=== PATIENT | female | born 1975 | race Caucasian/White ===

== ENCOUNTER → 2017-12-23 | Outpatient (CLI) | payer OTHER ==
--- NOTE | 2017-12-23 11:04 | CARD ---
MR#: [id number] Date of Study: 12/23/2017 Ordering Physician: KAYLYN HAWK, Referring Physician: KAYLYN HAWK, Tech: JULIO Lazar APPROVED REPORT EXAM: Two-dimensional and M-mode echocardiogram with Doppler and color Doppler. Other Information Quality : Average INDICATION Chest pressure Edema 2D DIMENSIONS Left Atrium(2D)3.6 (1.6-4.0cm)IVSd1.3 (0.7-1.1cm) Aortic Root(2D)3.2 (2.0-3.7cm)LVDd3.6 (3.9-5.9cm) LVOT Diameter2.1 (1.8-2.4cm)PWd1.2 (0.7-1.1cm) LVDs2.3 (2.5-4.0cm)FS (%) 35.1 % SV36.0 mlLVEF(%)65.3 (>50%) Aortic Valve AoV Peak Tai.119.1cm/Silverio Peak GR.5.7mmHg LVOT Peak Tai.91.3cm/sAVA (VMAX)2.77cm2 Mitral Valve MV E Kprahsoj84.4cm/sMV DECEL DUHJ421wo MV A Meicrkpy21.0cm/sE/A Ratio1.0 Tricuspid Valve TR P. Qopejpyk608wx/sRAP [id number] TR Peak Gr.12akXdIPEV17srXj LEFT VENTRICLE The left ventricle is normal size. There is mild concentric left ventricular hypertrophy. The left ve ntricular systolic function is normal and the ejection fraction is within normal range. The Ejection Fraction is 60-65%. There is normal LV segmental wall motion. The left ventricular diastolic function and filling is normal for age. RIGHT VENTRICLE The right ventricle is normal size. There is normal right ventricular wall thickness. The right ventr icular systolic function is normal. ATRIA The left atrium size is normal. The right atrium size is normal. The interatrial septum is intact wit h no evidence for an atrial septal defect or patent foramen ovale as noted on 2-D or Doppler imaging. AORTIC VALVE Not well visualized. Doppler and Color Flow revealed no significant aortic regurgitation. There is no significant aortic valvular stenosis. MITRAL VALVE The mitral valve is normal in structure and function. There is no mitral valve stenosis. Doppler and Color Flow revealed no mitral valve regurgitation noted. TRICUSPID VALVE The tricuspid valve is normal in structure and function. Doppler and Color Flow revealed trace tricus pid regurgitation. There is no tricuspid valve stenosis. PULMONIC VALVE The pulmonic valve is not well visualized. Doppler and Color Flow revealed trace pulmonic valvular re gurgitation. There is no pulmonic valvular stenosis. GREAT VESSELS The aortic root is normal in size. The IVC is normal in size and collapses >50% with inspiration. PERICARDIAL EFFUSION There is no pleural effusion. There is no evidence of significant pericardial effusion. Critical Notification Critical Value: No <Conclusion> The left ventricular systolic function is normal and the ejection fraction is within normal range. Th e Ejection Fraction is 60-65%. There is normal LV segmental wall motion. Signed by : Bao Fofana, Electronically Approved : 12/23/2017 11:03:42
== END | disposition home or self-care (01) ==
LOC: ECHO 09:46
PROVIDERS: ATTEND Family Medicine
DX: I51.7 Cardiomegaly (principal)
CPT/HCPCS: 93306

== ENCOUNTER → 2018-05-04 | Outpatient (CLI) | payer OTHER ==
--- NOTE | 2018-05-04 17:14 | RAD ---
History: Fluid drained from knee 2 weeks ago. Continued tenderness and pain ambulating. Comparison: None. Findings: AP, lateral, and oblique views of the left knee. No acute fracture or dislocation is identified. No joint effusion is identified. Mild medial and patellofemoral compartment degeneration is seen with small marginal osteophyte formation. Lateral compartment is without significant degeneration. There is soft tissue swelling anterior to the patella, and would be compatible with bursitis. Impression: 1. Prepatellar bursitis. 2. Mild medial and patellofemoral compartment degeneration. Electronically signed by: Yonny Maxwell MD (05/04/2018 5:11 PM) [place] [id number]
== END | disposition home or self-care (01) ==
LOC: RAD 16:17
PROVIDERS: ATTEND Family Medicine
DX: S89.92XA Unspecified injury of left lower leg, initial encounter (principal); M70.42 Prepatellar bursitis, left knee; M17.12 Unilateral primary osteoarthritis, left knee; M85.88 Other specified disorders of bone density and structure, other site; X58.XXXA Exposure to other specified factors, initial encounter; Y92.89 Other specified places as the place of occurrence of the external cause; Y99.8 Other external cause status; Y93.89 Activity, other specified
CPT/HCPCS: 73562

== ENCOUNTER → 2018-08-14 | Outpatient (CLI) | payer OTHER ==
--- NOTE | 2018-08-14 10:31 | RAD ---
Ultrasound venous Doppler INDICATION:Left lower extremity pain. TECHNIQUE: Grayscale, color Doppler and spectral waveform ultrasound images of the left lower extremity deep veins obtained. COMPARISON: None FINDINGS: The interrogated deep veins are compressible and demonstrate evidence of blood flow with normal respiratory variation and response to augmentation. Enlarged lymph nodes in the inguinal region, the largest measuring 3.9 x 2.1 x 1.5 cm. IMPRESSION: 1. No sonographic evidence of acute DVT of the left lower extremity deep veins. 2. Enlarged left inguinal lymph nodes. Electronically signed by: Sohan Multani DO (08/14/2018 10:28 AM) [id number]
--- NOTE | 2018-08-14 16:58 | RAD ---
Left lower extremity arterial Doppler ultrasound History: Left leg pain. FINDINGS: Triphasic waveforms are identified throughout. No evidence of occlusion or high-grade narrowing. Velocities range from 56 through 115 cm/s. No evidence of calcified plaque. IMPRESSION: No evidence of left lower extremity arterial occlusion or high-grade stenosis. Electronically signed by: Yonny Pedroza MD (08/14/2018 4:55 PM) [facility]
== END | disposition home or self-care (01) ==
LOC: US 09:28
PROVIDERS: ATTEND Registered Nurse
DX: M79.605 Pain in left leg (principal); R59.0 Localized enlarged lymph nodes
CPT/HCPCS: 93926; 93971

== ENCOUNTER → 2018-08-26 | Outpatient (CLI) | payer OTHER ==
[2018-08-26] MEDS: IOHEXOL 350 MG/ML 100 ML VIAL. IV ONE (09:32)
--- NOTE | 2018-08-26 10:41 | RAD ---
PQRS Compliance statement: One or more of the following individualized dose reduction techniques were utilized for this examination: 1. Automated exposure control. 2. Adjustment of the mA and/or kV according to patient size. 3. Use of iterative reconstruction technique. Indication:Omni 360 100c: PE protocol: Chest pain, short of air, cough, elevated d-dimer TECHNIQUE: CT angiogram of the chest with IV contrast with multiplanar MIP reformats. COMPARISON:None FINDINGS: Diagnostic quality PE study. There are no central, segmental or subsegmental filling defects in the pulmonary arteries. Heart is normal in size. No pericardial or pleural effusion. No enlarged axillary, mediastinal or hilar adenopathy. Central airways are patent. Lungs are clear. Visualized sections through the liver, spleen, pancreas, adrenals and kidneys within normal limits. Subcapsular fat is seen in the segment 8 of the liver, nonspecific. No suspicious bony lesion. IMPRESSION: 1. No PE. 2. No pneumonia or imaging evidence of acute pulmonary infarct. Electronically signed by: Sohan Multani DO (08/26/2018 10:38 AM) [id number]
== END | disposition home or self-care (01) ==
LOC: CT 08:57
PROVIDERS: ATTEND Family Medicine
DX: R79.1 Abnormal coagulation profile (principal); R07.9 Chest pain, unspecified; R05 Cough; R09.89 Other specified symptoms and signs involving the circulatory and respiratory systems; I10 Essential (primary) hypertension; J45.909 Unspecified asthma, uncomplicated
CPT/HCPCS: 71275; Q9967

== ENCOUNTER 2020-07-14 21:16 | Emergency (ER) | payer OTHER ==
[~2020-07-14] VITALS: Ht 162.6 cm; Wt 104.5 kg
[2020-07-14 22:28] VITALS: BP 158/72
--- NOTE | 2020-07-14 22:34 | PHYS DOC ---
Past History Past Medical History Severe psoriasis both skin and arthritis Past Surgical History: Appendectomy, Cholecystectomy Past Surgical History bowel resection General Adult EDM: Chief Complaint: ABDOMINAL PAIN HPI: HPI: ".. I ve had really bad pain.. all day.. some vaginal bleeding.. I thought it was cramps... .." Patient is a 45 year old female who presents with reported vaginal bleeding and cramping. Patient complaining of dysfunctional uterine bleeding like cramps, bu t also severe epigastric symptoms. Patient has had numerous abdomen surgeries gallstones in 2016 appendectomy and 72, partial removal of intestine due to localized injury. Patient symptoms seem to present in the last 24 hours. Last ate approximately 1:30 PM today. No recent travel. No specific ill contacts. No history immunosuppression. No history of trauma. Not passed any gas in the last 6 hours. Review of Systems: Review of Systems: Constitutional: Denies fever or chills Eyes: Denies change in visual acuity HENT: Denies nasal congestion or sore throat Respiratory: Denies cough or shortness of breath Cardiovascular: Denies chest pain or edema GI: Complains of severe generalized abdominal pain, nausea, patient denies vomiting, bloody stools or diarrhea : Denies dysuria Musculoskeletal: Denies back pain or joint pain Integument: Denies rash Neurologic: Denies headache, focal weakness or sensory changes Endocrine: Denies polyuria or polydipsia Lymphatic: Denies swollen glands Psychiatric: Denies depression or anxiety Family History: Family History: Noncontributory to presentation Current Medications: Current Meds: See nursing for home meds Allergies: Allergies: Allergies Coded Allergies Type Severity Reaction Last Updated Verified codeine Allergy Unknown 08/26/18 Yes hydrocodone Allergy Unknown 07/14/20 Yes Physical Exam: PE: Constitutional: in acute distress, non-toxic appearance. [] HENT: Normocephalic, atraumatic, bilateral external ears normal, oropharynx sean st, no oral exudates, nose normal. [] Eyes: PERRLA, EOMI, conjunctiva normal, no discharge. [] Neck: Normal range of motion, no tenderness, supple, no stridor. [] Cardiovascular:Heart rate regular rhythm, no murmur [] Lungs & Thorax: Bilateral breath sounds equal apex with few scattered wheezes a uscultation [] Abdomen: Bowel sounds decreased soft, generalized tenderness, some focal localization to the left upper and left lower on rebound, no masses, no pulsatile masses. Distended .[] Multiple surgery scars. Skin: Warm, dry, no erythema, no rash. [] Back: No tenderness, no CVA tenderness. [] Extremities: No tenderness, no cyanosis, no clubbing, ROM intact, no edema. No psoas sign Neurologic: Alert and oriented X 3, normal motor function, normal sensory function, no focal deficits noted. [] Psychologic: Affect anxious, judgement normal, mood normal. [] EKG: EKG: [] Radiology/Procedures: Radiology/Procedures: [address] [address] IMAGING REPORT Signed PATIENT: VIRGINIA FISHERUNT: [id number] : 1975 LOCATION: ER AGE: 45 SEX: F EXAM STATUS: REG ER ORD. PHYSICIAN: JEFFRY CARLISLE MD REASON: eval placement of ng PROCEDURE: CHEST AP ONLY EXAM: XR CHEST 1V 07/15/2020 2:46 AM CLINICAL INDICATION: NG tube placement COMPARISON: CT abdomen and pelvis 07/14/2020 TECHNIQUE: AP view of the chest and upper abdomen. FINDINGS: There is a new nasogastric tube terminating in the gastric fundus. There is gaseous distention of the stomach and some dilated loops of small noa wel. IMPRESSION: New nasogastric tube in the gastric fundus. Electronically signed by: Antonette Bustamante MD (07/15/2020 4:36 AM) [id number] DICTATED AND SIGNED BY: ANTONETTE BUSTAMANTE MD DATE: 07/15/20 0434 CC: JEFFRY CARLISLE MD; JENNIFER YOUNG MD ~MTH0 0 [] [] IMAGING REPORT Signed PATIENT: VIRGINIA FISHER MACCOUNT: [id number] : 1975 LOCATION: ER AGE: 45 SEX: F EXAM STATUS: REG ER ORD. PHYSICIAN: JEFFRY CARLISLE MD REASON: Abd pain, hx. cholectomy, appendix, bowel resection Omni 300 75c PROCEDURE: CT ABD PELV W/ORAL&IV CONTRAST Exam: CT abdomen/pelvis without intravenous contrast Indication: Abdominal pain, history of cholecystectomy, appendectomy, and bowel resection. Comparison: None Technique: Helical CT imaging performed of the abdomen and pelvis without the use of intravenous contrast. Sagittal and coronal reformats were obtained. One or more of the following individualized dose reduction techniques were utilized for this examination: 1. Automated exposure control 2. Adjustment of the mA and/or kV according to patient size 3. Use of iterative reconstruction technique. Findings: Inherently limited evaluation without intravenous contrast. Lower chest: Normal. Liver: There is a 2.4 x 1.0 cm subcapsular lesion in the right hepatic lobe with fat density. Gallbladder/Biliary Tree: Gallbladder surgically absent. Bile ducts are normal. Pancreas: Normal. Spleen: Normal. Adrenal Glands: Normal. Kidneys/Ureters/Bladder: Kidneys, ureters, and bladder are normal. Reproductive Organs: Uterus is enlarged. The ovaries are prominent. Stomach, small bowel, and colon: Stomach is mildly distended. There are surgical clips in the left midabdomen adjacent to the small bowel. The mid to distal small bowel is dilated up to 4.4 cm in diameter. There is a transition point in the right upper quadrant were there is a segment of abnormal small bowel with wall thickening and narrowing, suspicious for stricture, acute inflammatory bowel disease, or mass. Small bowel proximal to this demonstrates fecalization. Small bowel distal to this is normal to decompressed. There is fat stranding and small amount of free fluid surrounding loops of abnormal bowel in the right upper quadrant. No pneumatosis or pneumoperitoneum. The colon is normal aside from mild sigmoid diverticulosis. Vasculature: Abdominal aorta is normal. Lymph Nodes: There are bilateral external iliac chain lymph nodes, including a 1.3 cm short axis left external iliac chain node (image 77, series 2). Peritoneum and retroperitoneum: No free fluid or free air. Bones: No acute osseous abnormality. There is lower lumbar facet arthrosis. Impression: 1. Mechanical small bowel obstruction with transition point in the right upper quadrant were there is a segment of abnormal small bowel with relative narrowing and wall thickening. This could be due to stricture, acute inflammatory bowel disease, or mass. Small amount of fat surrounding free fluid around the small bowel. No pneumatosis or pneumoperitoneum. 2. Enlarged uterus and prominent ovaries. Correlate with clinical history and pelvic ultrasound as indicated. 3. 2.4 cm fat-containing subcapsular lesion in the right hepatic lobe. This is indeterminate. Nonemergent CT or MRI with renal mass protocol could be obtained. 4. Mildly enlarged left external iliac chain lymph node measuring 1.3 cm short axis. Other small bilateral external iliac chain lymph nodes, nonspecific. Electronically signed by: Antonette Bustamante MD (07/15/2020 2:18 AM) [id number] DICTATED AND SIGNED BY: ANTONETTE BUSTAMANTE MD DATE: 07/15/20 0203 CC: JEFFRY CARLISLE MD; JENNIFER YOUNG MD ~MTH0 0 Heart Score: HEART Score for Chest Pain: HEART Score for Chest Pain Response (Comments) Value History Slighlty/Non-Suspicious 0 ECG Normal 0 Age >45 - < 65 1 Risk Factors 1 or 2 Risk Factors 1 Troponin < Normal Limit 0 Total 2 Risk Factors: Risk Factors: DM, Current or recent (<one month) smoker, HTN, HLP, family history of CAD, obesity. Risk Scores: Score 0 - 3: 2.5% MACE over next 6 weeks - Discharge Home Score 4 - 6: 20.3% MACE over next 6 weeks - Admit for Clinical Observation Score 7 - 10: 72.7% MACE over next 6 weeks - Early Invasive Strategies Course & Med Decision Making: Course & Med Decision Making Pertinent Labs and Imaging studies reviewed. (See chart for details) Discussed presentation, testing and tx. plan with Dr. Elena. Plan transfer to [facility]. Dr. Will consulted. Plan possible MRI eot evaluate the 2.4 cm lesion of Rt. hepatic lobe. Impression: 1. Abdomen Pain 2. Small bowel obstruction 3. Hematuria? vs c-menstrual contamination 4. 2.4 cm subcapsular lesion right hepatic lobe [] Dragon Disclaimer: Dragon Disclaimer: This electronic medical record was generated, in whole or in part, using a voice recognition dictation system. Departure Departure: Referrals: JENNIFER YOUNG MD (PCP) Dragon Disclaimer This chart was dictated in whole or in part using Voice Recognition software in a busy, high-work load, and often noisy Emergency Department environment. It may contain unintended and wholly unrecognized errors or omissions. Dragon Disclaimer This chart was dictated in whole or in part using Voice Recognition software in a busy, high-work load, and often noisy Emergency Department environment. It may contain unintended and wholly unrecognized errors or omissions. Dragon Disclaimer This chart was dictated in whole or in part using Voice Recognition software in a busy, high-work load, and often noisy Emergency Department environment. It may contain unintended and wholly unrecognized errors or omissions. JEFFRY CARLISLE MD Jul 14, 2020 22:34
[2020-07-14] MEDS ORDERED: FAMOTIDINE 20 MG/2 ML VIAL IVP ONE (22:45)
[2020-07-14] MEDS ORDERED: ONDANSETRON PF 4 MG/2 ML VIAL. IVP ONE (22:45)
[2020-07-14] MEDS ORDERED: IV RINGERS SOLUTION,LACTATED 1,000 ML IV SCH (22:45)
[2020-07-14] MEDS ORDERED: KETOROLAC 30 MG/ML VIAL. IVP ONE (23:15)
[2020-07-14 23:34] LABS: BASO % 0 % (0-3); EOS % 0 % (0-3); HEMATOCRIT 41.2 % (36.0-47.0); HEMOGLOBIN 13.8 g/dL (12.0-15.5); LYMPH # 0.6 x10^3/uL (1.0-4.8); LYMPH % 7 % (24-48); MEAN CORPUSCULAR HEMOGLOBIN 28 pg (25-35); MEAN CORPUSCULAR HGB CONC 33 g/dL (31-37); MEAN CORPUSCULAR VOLUME 84 fL (79-100); MONO # 0.3 x10^3/uL (0.0-1.1); MONO % 3 % (0-9); NEUT # 6.9 x10^3uL (1.8-7.7); NEUT % 89 % (31-73); PLATELET COUNT 259 x10^3/uL (140-400); RED BLOOD COUNT 4.89 x10^6/uL (3.50-5.40); RED CELL DISTRIBUTION WIDTH 15.4 % (11.5-14.5); WHITE BLOOD COUNT 7.8 x10^3/uL (4.0-11.0)
[2020-07-14 23:36] LABS: BARBITURATES NEG (NEG); BENZODIAZEPINES NEG (NEG); CANNABINOIDS NEG (NEG); COCAINE NEG (NEG); METHADONE NEG (NEG); OPIATES NEG (NEG); PHENCYCLIDINE NEG (NEG)
[2020-07-14 23:42] LABS: CALCIUM 8.6 mg/dL (8.5-10.1); CREATININE 0.9 mg/dL (0.6-1.0); GFR 67.1; POTASSIUM 4.7 mmol/L (3.5-5.1)
[2020-07-14 23:42] LABS: AMPHETAMINE/METHAMPHETAMINE NEG (NEG)
[2020-07-14 23:45] LABS: ALBUMIN 3.7 g/dL (3.4-5.0); DIRECT BILIRUBIN 0.1 mg/dL (0.0-0.2); TOTAL BILIRUBIN 0.3 mg/dL (0.2-1.0); TOTAL PROTEIN 7.9 g/dL (6.4-8.2)
[2020-07-14 23:55] LABS: CLARITY,URINE CLOUDY; COLOR,URINE RED
[2020-07-14 23:56] LABS: BILIRUBIN,URINE NEG (NEG); GLUCOSE,URINE NEG (NEG); NITRITE,URINE NEG (NEG)
[2020-07-14 23:57] LABS: BACTERIA,URINE FEW /HPF (0-FEW); RBC,URINE >40 /HPF (0-2); SQUAMOUS EPITHELIAL CELL,UR FEW /LPF; WBC,URINE 0 /HPF (0-4)
[2020-07-15] MEDS ORDERED: CONTRAST GIVEN. MC PRN (00:30)
[2020-07-15] MEDS ORDERED: IOHEXOL 240 MG/ML 50ML VIAL. PO ONE (00:30)
[2020-07-15] MEDS ORDERED: IOHEXOL 300 MG/ML 75 ML VIAL. IV ONE (00:30)
--- NOTE | 2020-07-15 02:20 | RAD ---
Exam: CT abdomen/pelvis without intravenous contrast Indication: Abdominal pain, history of cholecystectomy, appendectomy, and bowel resection. Comparison: None Technique: Helical CT imaging performed of the abdomen and pelvis without the use of intravenous cont rast. Sagittal and coronal reformats were obtained. One or more of the following individualized dose reduction techniques were utilized for this examinat ion: 1. Automated exposure control 2. Adjustment of the mA and/or kV according to patient size 3. Use of iterative reconstruction technique. Findings: Inherently limited evaluation without intravenous contrast. Lower chest: Normal. Liver: There is a 2.4 x 1.0 cm subcapsular lesion in the right hepatic lobe with fat density. Gallbladder/Biliary Tree: Gallbladder surgically absent. Bile ducts are normal. Pancreas: Normal. Spleen: Normal. Adrenal Glands: Normal. Kidneys/Ureters/Bladder: Kidneys, ureters, and bladder are normal. Reproductive Organs: Uterus is enlarged. The ovaries are prominent. Stomach, small bowel, and colon: Stomach is mildly distended. There are surgical clips in the left mi dabdomen adjacent to the small bowel. The mid to distal small bowel is dilated up to 4.4 cm in diamet er. There is a transition point in the right upper quadrant were there is a segment of abnormal small bowel with wall thickening and narrowing, suspicious for stricture, acute inflammatory bowel disease , or mass. Small bowel proximal to this demonstrates fecalization. Small bowel distal to this is norm al to decompressed. There is fat stranding and small amount of free fluid surrounding loops of abnorm al bowel in the right upper quadrant. No pneumatosis or pneumoperitoneum. The colon is normal aside f rom mild sigmoid diverticulosis. Vasculature: Abdominal aorta is normal. Lymph Nodes: There are bilateral external iliac chain lymph nodes, including a 1.3 cm short axis left external iliac chain node (image 77, series 2). Peritoneum and retroperitoneum: No free fluid or free air. Bones: No acute osseous abnormality. There is lower lumbar facet arthrosis. Impression: 1. Mechanical small bowel obstruction with transition point in the right upper quadrant were there i s a segment of abnormal small bowel with relative narrowing and wall thickening. This could be due to stricture, acute inflammatory bowel disease, or mass. Small amount of fat surrounding free fluid gabrielle und the small bowel. No pneumatosis or pneumoperitoneum. 2. Enlarged uterus and prominent ovaries. Correlate with clinical history and pelvic ultrasound as i ndicated. 3. 2.4 cm fat-containing subcapsular lesion in the right hepatic lobe. This is indeterminate. Noneme rgent CT or MRI with renal mass protocol could be obtained. 4. Mildly enlarged left external iliac chain lymph node measuring 1.3 cm short axis. Other small mohamud ateral external iliac chain lymph nodes, nonspecific. Electronically signed by: Antonette Bustamante MD (07/15/2020 2:18 AM) [id number]
--- NOTE | 2020-07-15 02:21 | RAD ---
EXAM: XR ABDOMEN COMP ACUTE 07/14/2020 12:22 AM CLINICAL INDICATION: Lower abdominal pain, vaginal bleeding with blood clots COMPARISON: None TECHNIQUE: AP supine and upright views of the abdomen, PA view the chest FINDINGS: Bowel gas pattern is nonspecific and nonobstructive. Normal volume of stool. Cholecystecto my clips are noted. The heart and mediastinum are normal. Lungs are well-expanded and clear. No acute osseous abnormality. IMPRESSION: No acute radiographic abnormality. Electronically signed by: Antonette Bustamante MD (07/15/2020 2:19 AM) [id number]
[2020-07-15] MEDS ORDERED: MORPHINE SULFATE 10 MG/ML SYRINGE. SQ ONE (03:00)
[2020-07-15] MEDS ORDERED: ONDANSETRON PF 4 MG/2 ML VIAL. IVP ONE (04:30)
--- NOTE | 2020-07-15 04:39 | RAD ---
EXAM: XR CHEST 1V 07/15/2020 2:46 AM CLINICAL INDICATION: NG tube placement COMPARISON: CT abdomen and pelvis 07/14/2020 TECHNIQUE: AP view of the chest and upper abdomen. FINDINGS: There is a new nasogastric tube terminating in the gastric fundus. There is gaseous disten tion of the stomach and some dilated loops of small bowel. IMPRESSION: New nasogastric tube in the gastric fundus. Electronically signed by: Antonette Bustamante MD (07/15/2020 4:36 AM) [id number]
== END 2020-07-15 05:36 | disposition short-term general hospital (02) ==
LOC: ER 21:16
DX: K56.609 Unspecified intestinal obstruction, unspecified as to partial versus complete obstruction (principal); R91.1 Solitary pulmonary nodule; Z90.89 Acquired absence of other organs; Z90.49 Acquired absence of other specified parts of digestive tract; Z88.5 Allergy status to narcotic agent
CPT/HCPCS: 36415; 71045; 74022; 74177; 80048; 80076; 80307; 81001; 81025; 82550; 83690; 84702; 85025; 85610; 85730; 96361; 96372; 96374; 96375; 96376; 99285; J1885; J2270; J2405; J3490; J7120; Q9966; Q9967